=== PATIENT | female | born 1995 | race African-American/Black ===

== ENCOUNTER 2021-02-02 12:10 | Emergency (ER) | payer BC ==
[~2021-02-02] VITALS: Ht 167.6 cm; Wt 67.0 kg
[2021-02-02] MEDS ORDERED: HYDROCODONE/ACETAMINOPHEN 5/325MG TABLET PO ONE (12:30)
[2021-02-02] MEDS ORDERED: LIDOCAINE HCL/EPINEPHRINE 1%-EPI 1:100,000 20 ML VIAL INFIL ONE (12:30)
[2021-02-02] MEDS ORDERED: BACITRACIN ZINC OINT UDPKT TOP ONE (12:30)
[2021-02-02 12:38] VITALS: BP 147/100
== END 2021-02-02 13:53 | disposition left against medical advice (07) ==
LOC: ER 12:10
DX: S61.512A Laceration without foreign body of left wrist, initial encounter (principal); X58.XXXA Exposure to other specified factors, initial encounter; Y93.89 Activity, other specified; Y92.89 Other specified places as the place of occurrence of the external cause; Y99.8 Other external cause status
CPT/HCPCS: 73110; 81025; 99283; A4217; J3490; Z7610